=== PATIENT | male | born 1955 | race Caucasian/White ===

== ENCOUNTER 2021-01-03 13:54 | Observation (INO) | payer BC, MEDICARE, SELFPAY ==
--- NOTE | ~2021-01-03 | US_ITS ---
EXAMINATION: US venous doppler LE DATE: 01/03/2021 09:31 INDICATION: Phlebitis/thrombophlebitis with pain and swelling in the right lower limb. TECHNIQUE: Grayscale ultrasound images without and with compression and Doppler ultrasound images of the bilateral lower extremity veins were obtained. COMPARISON: None. FINDINGS: The visualized portions of right common femoral vein, profunda (deep) femoral vein, femoral vein, pop liteal vein, posterior tibial veins, peroneal veins, gastrocnemius vein and greater saphenous vein ou tflow are patent. The left peroneal veins dilated and noncompressible, filled with occlusive or nearly occlusive hypoec hoic thrombus. The visualized portions of left common femoral vein, profunda femoral vein, femoral ve in, popliteal vein, posterior tibial veins, peroneal veins, gastrocnemius vein and greater saphenous vein outflow are patent. IMPRESSION: 1. Deep venous thrombosis in the left peroneal vein. Dr. Handley discussed these findings with Dr. Berry at 9:40 AM. 2. No deep venous thrombosis in the right lower limb. Reviewed, dictated and finalized at location A. IMPRESSION: 1. Deep venous thrombosis in the left peroneal vein. Dr. Handley discussed debby findings with Dr. Berry at 9:40 AM. 2. No deep venous thrombosis in the right lower limb.
--- NOTE | ~2021-01-03 | CT_ITS ---
. EXAMINATION: CT abdomen w con DATE: 01/03/2021 09:51 INDICATION: Abdominal pain. TECHNIQUE: Computed tomography (CT) of the abdomen and pelvis was performed with 100 mL Omnipaque-350 intravenous contrast. Automated exposure control and iterative reconstruction technique were employe d. The dose-length product was 638.75 mGy-cm. COMPARISON: None FINDINGS: Mild dependent atelectasis in the bilateral lower lobes. Heart size is normal. Small amount of athero sclerotic coronary artery calcific lesion along the right coronary artery. Mitral annular calcific le shan. No pericardial or pleural effusion. Multiple low-attenuation hepatic cysts the largest measurin g 2.3 cm. Gallbladder, spleen and a couple small splenules, pancreas, bilateral adrenal glands and ki dneys are normal. Ventriculoperitoneal shunt extends along the anterior right chest wall into the per itoneum with distal tip in the right upper quadrant. Postoperative change of prior umbilical hernia m esh repair. There are a few small fat and fluid containing supraumbilical ventral hernias. No other e vident ascites in the abdomen or visualized portion of the upper pelvis. Multiple diverticula along t he descending and visualized proximal sigmoid colon without adjacent inflammatory change to suggest d iverticulitis. No bowel obstruction. Visualized portion of the appendix is normal. 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 The aorta at this level measures approximately 1.7 cm AP x 1.9 left to right with the saccular aneurysm extending 1.9 c m AP and adding an additional 11 mm to the AP diameter of the aorta. No pathologically enlarged abdom inal lymphadenopathy. Moderate to severe lumbar spondylosis with 2-3 mm spondylolisthesis at each lev el. Transitional thoracolumbar segment. IMPRESSION: 1. No acute intra-abdominal process. 2. Diverticulosis. 3. Multiple small fat and fluid containing supraumbilical ventral hernias with postoperative changes of more caudal umbilical hernia mesh repair. Reviewed, dictated and finalized at location A.
--- NOTE | ~2021-01-03 | CT_ITS ---
EXAMINATION: CT brain w con DATE: 01/03/2021 11:19 INDICATION: Brain tumor and suspected normal pressure hydrocephalus TECHNIQUE: Computed tomography (CT) of the head was performed with 100 mL Omnipaque-350 intravenous c ontrast. Sagittal and coronal reconstructions were performed. The mA was adjusted according to patien t size. Iterative reconstruction technique was employed. The dose-length product was 605.33 mGy-cm. COMPARISON: Sinus CT dated 11/26/2007 FINDINGS: There is a ventriculoperitoneal shunt which extends through a right parietal bre hole, across the ri ght parietal lobe, into the anterior horn of the right lateral ventricle before crossing the midline. The distal tip of the catheter is positioned along the septum the anterior horn of the le ft lateral ventricle from a normal cavum septum pellucidum. No acute intracranial hemorrhage, acute i nfarction or abnormal extra axial fluid collection. Ventricles remain normal and symmetric. There is a 10 x 6 x 5 mm enhancing lesion with poorly defined margins positioned along the medial margin of th e anterior right frontal lobe. No evident mass effect. The poorly defined margins favor intra-axial o michel an extra-axial lesion. No other abnormally enhancing lesions identified. The left vertebral arter y is dominant. There is segmental mild narrowing of the intracranial right vertebral artery. The left P1 segment is patent. The right posterior cerebral artery is supplied from the right internal caroti d artery by a patent right posterior communicating artery. The bilateral A1 segments are patent. Travis ges of right intraocular lens replacement. Orbits are otherwise unremarkable. Mild mucosal thickening in the bilateral ethmoid sinuses. Mastoid air cells and middle ear cavities are clear. IMPRESSION: 1. Likely intra-axial 10 x 6 x 5 mm enhancing lesion with poorly defined margins along the medial mar gin of the anterior right frontal lobe. Consider further evaluation with MRI. 2. Ventriculoperitoneal shunt catheter with distal tip along the septum the frontal horn o f the left lateral ventricle from a cavum septum pellucidum. No hydrocephalus. Reviewed, dictated and finalized at location A. IMPRESSION: 1. Likely intra-axial 10 x 6 x 5 mm enhancing lesion with poorly defined margin s along the medial margin of the anterior right frontal lobe. Consider further evaluation with MRI. 2. Ventriculoperitoneal shunt catheter with distal tip along the septum separat ing the frontal horn of the left lateral ventricle from a cavum septum pellucid um. No hydrocephalus.
[2021-01-03 09:39] LABS: Estimated Glomerular Filt Rate > 60
[2021-01-03 11:02] LABS: Estimated Glomerular Filt Rate > 60
[2021-01-03 12:30] LABS: Prothrombin Time 13.8 Seconds (11.1-14.7)
--- NOTE | 2021-01-03 12:36 | PC.NURSE ---
This patient, Gabriel Moura, was admitted to [facility] Surg Room 302-01 on 01/03/21 @ 1225. Patient/family oriented to hospital policies and general routines including ID bracelet, bed and alarms, visiting hours, pain management, procedures, bathroom and other care routines, personal items, smoking policy, room service/diet, and visiting hours. Information on how to activate the Rapid Response Team has been discussed. Patient/Family are encouraged to report perceived risks to care and to ask questions if they do not understand what they are told or what they should do.
--- NOTE | 2021-01-03 13:54 | PM.IMHP ---
H&P: HPI History of Present Illness Date/Time: 01/03/21 1230 this is a 65-year-old male patient with a history of having a brain tumor roughly around 0 3 or 0 4. The patient did have a SCROLL SHEAR OPERATOR shunt placed at that time and it is a delta pump that was placed at [facility] in [place]. The patient stated that the pump is been nonfunctioning for about the last 4 years. The patient stated that he is very fatigued. He states that he had oz have sleep apnea but he uses his CPAP machine. The patient states that he almost feels like he has narcolepsy that when he sits down in his falls asleep. The patient went to Dr. Souza to determine why he has been feeling so fatigued recently. The patient stated he did have his thyroid checked and it was okay. The patient stated that many years ago he did have 30 radiation treatments for his brain tumor. The patient has been having periods of falling as well. The patient stated that he does not feel dizzy or have any chest pain during this time but he is off balance at times and falls. Patient fell recently about a weaker to ago but he did not hit his head. The patient has a history of paroxysmal atrial fibrillation as well and he is not on any anticoagulation. He is just on rate controlling medication. The patient was complaining of right knee pain and therefore he was sent for venous Dopplers to bilateral lower extremities. Deep venous thrombosis in the left peroneal vein. Dr. Handley discussed these findings with Dr. Berry at 9:40 AM. 2. No deep venous thrombosis in the right lower limb. I double checked with the radiologist concerning that which leg had a DVT and it was verified that the left leg has a DVT. Surgery has been consulted the patient has been NPO all day. I also spoke with Dr. ang copious she explained that he feels that the best treatment for this patient at this time is for him to have a IVC filter. The procedure was explained to the patient by the surgical team as well as the surgeon. The patient is also concerned about his sleep apnea and is scheduled for a repeat sleep study. However explained that we could do the apneic link today but if he fails and he would just have to go to another sleep study anyway. However the and the patient would like for the jolei tingling to be performed tonight. Also had MRI of the brain today which was read as1. Likely intra-axial 10 x 6 x 5 mm enhancing lesion with poorly defined margins along the medial margin of the anterior right frontal lobe. Consider further evaluation with MRI. 2. 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 No hydrocephalus. I discussed these findings with the patient and his . I am also requesting information concerning the SCROLL SHEAR OPERATOR shunt that was placed at [facility]. I spoke with MRI twice now to determine if the patient can't have an MRI with a SCROLL SHEAR OPERATOR shunt. The tells me that it is a delta and it was placed at [facility]. I am requesting records concerning the SCROLL SHEAR OPERATOR shunt. The BP shunt has been nonfunctioning for about [address] the patient on a monitor as he has paroxysmal atrial fibrillation. He has not been on any anticoagulation. And we explained that at some point if everything comes LR right with MRI that the patient may possibly be placed on anticoagulation. The patient stated that he would also like to talk to his own vp lab who is at another facility prior to taking any anticoagulation. The surgeon explained held the filter works and that sometimes it may become plugged along with any other complications that could occur from having a IVC filter. I spoke with my collaborative who stated that the patient may possibly be anticoagulated later on down the road. However it was felt that it to the but patient's best interest to have IVC filter at this time and determine what the mass is o
--- NOTE | 2021-01-03 13:58 | PM.CNGS ---
Assessment and Plan Assessment and plan (1) DVT (deep venous thrombosis): Code(s): I82.409 - Acute embolism and thrombosis of unspecified deep veins of unspecified lower extremity Status: Acute Assessment and Plan: DVT left peroneal vein on venous doppler studies. PCP requesting IVC filter placement due to him wanting to avoid anticoagulation for possible future intervention for head CT findings and history of falls. I discussed this with the patient and treatment plan. Description of the procedure, risks, benefits, and expected recovery were discussed with the patient. We will proceed with IVC filter placement today by Dr. Bray. (2) Hx of fall: Code(s): Z91.81 - History of falling Status: Acute (3) Abnormal CT scan, head: Code(s): R93.0 - Abnormal findings on diagnostic imaging of skull and head, not elsewhere classified Status: Acute (4) Pineal gland, tumor: Code(s): D49.7 - Neoplasm of unspecified behavior of endocrine glands and other parts of nervous system Status: Acute (5) MADISYN on CPAP: Code(s): G47.33 - Obstructive sleep apnea (adult) (pediatric); Z99.89 - Dependence on other enabling machines and devices Status: Acute (6) Paroxysmal atrial fibrillation: Code(s): I48.0 - Paroxysmal atrial fibrillation Status: Acute Assessment and Plan: Not on chronic anticoagulation Additional Plan I have discussed the patient's case and plan of care with Dr. Bray. History of Present Illness Consult details Consult date: 01/03/21 Reason for consult: other (IVC filter placement) Requesting physician: Cassi Felix NP Narrative: This is a 65-year-old with a history of pineal gland tumor status post PROCESS MANUFACTURING ENGINEER shunt placement in 2002, paroxysmal atrial fibrillation, MADISYN, and history of falls, who was seen by his primary care physician yesterday with complaints of fatigue, right lower extremity swelling, and right posterior knee pain. He had outpatient bilateral venous Doppler studies showing a left peroneal vein DVT. He also had a head CT with a 10 x 6 x 5 mm enhancing lesion and PROCESS MANUFACTURING ENGINEER shunt catheter noted. Our service was contacted by Dr. Berry for request of IVC filter placement. He would like to avoid anticoagulating the patient for the DVT reportedly due to history of falls and possible future procedures for new findings on head CT. The patient has been admitted to the hospitalist service for further workup and coordinating IVC filter placement. He is now seen on the medical floor. The hospitalist is working with Radiology to confirm laterality of the DVT. Patient's main complaint is swelling to the right lower extremity with posterior knee pain and fatigue. No other complaints at this time. Review of Systems Review of Systems: All systems reviewed & are unremarkable except as noted in HPI and below PMFSH Past Medical History Medical History BMI 29.0-29.9,adult Cognitive dysfunction Colon cancer screening Encounter to establish care Fatigue History of brain tumor Hx of fall Inguinal hernia On termite exterminator helper drug therapy MADISYN on CPAP Pineal gland, tumor Prostate cancer screening SBO (small bowel obstruction) Superficial thrombophlebitis Ventral hernia Surgical History Surgical History H/O eye surgery H/O hernia repair umbilical hernia and inguinal hernia repair in past S/P PROCESS MANUFACTURING ENGINEER shunt Family History Family History Father Heart disease Acute myocardial infarction Mother COVID-19 Sibling COVID-19 Other Family history of cardiovascular disease Social History Social History Smoking status: Never smoker Second hand tobacco smoke exposure: Yes Alcohol intake: current Substance use: never Substance use ty
--- NOTE | 2021-01-03 14:27 | WPDHPUPDATE1 ---
History and Physical Update Update Date/Time: 01/03/21 14:27 History and Physical has been reviewed, including an updated exam of the patient. There are NO changes in the patient's condition. Risks, benefits, and alternatives have been discussed and questions answered. Patient agrees to proceed with procedure.
--- NOTE | 2021-01-03 14:53 | P.OP_ITS ---
Procedure Note - Detailed Date of Procedure 01/03/21 Pre-op Diagnosis LLE DVT Post-op Diagnosis same Procedure Performed IVC filter placement using ultrasound and fluoroscopic guidance Surgeon Claude Bray, DO Anesthesia local (1% Lidocaine) Indications this is a 65-year-old man who presented with a recent finding of a left lower extremity DVT. He also has a history of SCREW MACHINE SET UP OPERATOR TOOL shunt and brain tumor. He has had some problems with unsteady gait and has had a couple falls. I discussed his condition with his primary care physician who felt that he would not be a long- term anticoagulation candidate. His PCP was requesting proceeding with IVC filter placement. Findings Sonosite ultrasound was used to identify the right femoral vein. This was visualized as a compressible vessel just medial to the pulsatile femoral artery. The 18 gauge introducer needle was advanced under ultrasound guidance. Fluoroscopy was then used to guide advancement of the guidewire followed by the dilator and sheath. Final fluoroscopic images demonstrated the filter in proper position at the level of the L3 vertebral body. Description of Procedure Patient was brought back to tree tapping laborer suite. He was placed supine tree tapping laborer table. Time-out was done to confirm patient procedure. his right groin was prepped and draped in sterile fashion using chlorhexidine prep. SonoSite ultrasound was used to identify the right femoral vein. This was visualized as a compressible vessel just medial to the right femoral artery. 1% lidocaine was infiltrated directly over this area. An 18 gauge introducer needle was then advanced under ultrasound guidance directly into the lumen of the right femoral vein. Dark nonpulsatile blood was aspirated. A 0.035 in guidewire was advanced through the needle under fluoroscopic guidance. The guidewire advanced smoothly and was visualized advancing up into the inferior vena cava. The needle was withdrawn leaving the guidewire in place. A small duglas incision was made at the insertion site using an 11 blade scalpel. The 6 [place] dilator and sheath were then advanced over the guidewire under fluoroscopic guidance. The sheath was advanced up to the L3 vertebral body, and then once the sheath was at the upper portion of the L3 vertebral body, the dilator and guidewire were removed. The IVC filter was then inserted into the end of the sheath and then the plunger was used to carefully advanced the filter up the length of the sheath. Once the filter was visualized under fluoroscopy at the tip of the sheath, the sheath was slowly withdrawn to allow the filter to deploy. Once the filter was completely expanded, the sheath was removed and pressure was applied at the insertion site. One final fluoroscopic image was obtained visualizing the IVC filter and proper orientation overlying the L3 vertebral body. After holding pressure for 5 minutes, there is no further blood loss and a sterile dressing was applied. Implants Trapease IVC Filter Estimated Blood Loss 2 Complications No immediate complications Condition stable Disposition floor
[2021-01-03 15:56] LABS: Alanine Aminotransferase 18 U/L (4-50); Albumin Level 4.2 g/dL (3.5-5.1); Alkaline Phosphatase 104 U/L (38-126); Anion Gap 7 mmol/L (8-16); Aspartate Amino Transferase 24 U/L (17-59); Bilirubin,Total 0.6 mg/dL (0.2-1.3); Blood Urea Nitrogen 11 mg/dL (9-20); Calcium 9.8 mg/dL (8.4-10.2); Carbon Dioxide 31 mmol/L (22-30); Chloride 105 mmol/L (98-107); Estimated Glomerular Filt Rate > 60; Glucose 97 mg/dL (75-110); Magnesium 2.2 mg/dL (1.6-2.3); Potassium 4.8 mmol/L (3.4-5.0); Sodium 143 mmol/L (137-145)
[2021-01-03 16:00] VITALS: BP 138/83; PULSE 55; RESP 20; TEMP 36.5; O2SAT 96
[2021-01-03] MEDS: SODIUM CHLORIDE 0.9% IV 1,000 ML 100 ML IV CONT ×2 (16:09→23:22)
[2021-01-03 16:53] LABS: Free T4 Free Thyroxine 0.97 ng/mL (0.78-2.19)
[2021-01-03] MEDS: ACETAMINOPHEN 325 MG TABLET 650 MG PO (16:54)
[2021-01-03 19:48] VITALS: BP 114/70; PULSE 58; RESP 18; TEMP 36.6; O2SAT 95
[2021-01-03 20:00] VITALS: PULSE 54
[2021-01-03 22:40] VITALS: PULSE 68
[2021-01-03] MEDS: FLECAINIDE ACETATE 100 MG TABLET PO (22:40)
[2021-01-03 23:29] VITALS: BP 116/62; PULSE 57; RESP 18; TEMP 36.3; O2SAT 95
[2021-01-04] VITALS (9 sets, daily range): BP systolic 115–140; BP diastolic 64–83; PULSE 54–76; RESP 14–18; TEMP 36.2–36.6; O2SAT 93–100; BMI 26.6
[2021-01-04 06:08] LABS: Basophils Absolute Auto 0.1 K/mm3 (0.0-0.1); Basophils Percent Auto 0.8 % (0.2-1.2); Eosinophils Absolute Auto 0.3 K/mm3 (0-0.3); Eosinophils Percent Auto 4.7 % (0-4.4); Hematocrit 38.4 % (42.0-52.0); Immature Granulocyte Absolute 0.01 K/mm3 (0.00-0.031); Immature Granulocyte Percent A 0.1 % (0-0.5); Lymphocytes Absolute Auto 1.83 K/mm3 (0.9-3.2); Lymphocytes Percent Auto 25.9 % (18.3-44.2); Mean Corpuscular HGB Conc 33.9 g/dl (32-36); Mean Corpuscular Hemoglobin 30.8 pg (26-34); Mean Platelet Volume 9.9 fl (7.4-10.4); Monocytes Absolute Auto 0.5 K/mm3 (0.1-0.6); Monocytes Percent Auto 6.9 % (2.6-8.5); Neutrophils Absolute Auto 4.4 K/mm3 (1.3-6.7); Neutrophils Percent Auto 61.6 % (45.5-73.1); Platelet Count Result 206 k/mm3 (150-375); Red Blood Count 4.22 M/mm3 (4.6-6.20); Red Cell Distribution Width 13.4 % (11.5-14.5); White Blood Count 7.1 K/mm3 (4.5-10.0)
[2021-01-04] MEDS: ACETAMINOPHEN 325 MG TABLET 650 MG PO (06:23)
[2021-01-04 06:26] LABS: Alanine Aminotransferase 15 U/L (4-50); Albumin Level 3.6 g/dL (3.5-5.1); Alkaline Phosphatase 95 U/L (38-126); Anion Gap 5 mmol/L (8-16); Aspartate Amino Transferase 22 U/L (17-59); Bilirubin,Total 0.6 mg/dL (0.2-1.3); Blood Urea Nitrogen 9 mg/dL (9-20); Calcium 9.2 mg/dL (8.4-10.2); Carbon Dioxide 28 mmol/L (22-30); Chloride 107 mmol/L (98-107); Estimated Glomerular Filt Rate > 60; Glucose 99 mg/dL (75-110); Lactate Dehydrogenase 289 U/L (313-618); Lipase 66 U/L (23-300); Magnesium 2.1 mg/dL (1.6-2.3); Potassium 4.1 mmol/L (3.4-5.0); Sodium 140 mmol/L (137-145)
[2021-01-04 08:04] LABS: Thyroid Stimulating Hormone Reflex 0.651 uIU/mL (0.465-4.68)
[2021-01-04] MEDS: FLECAINIDE ACETATE 100 MG TABLET PO ×2 (09:20→21:16)
[2021-01-04] MEDS: ASPIRIN 81 MG ENTERIC TABLET PO (09:20)
--- NOTE | 2021-01-04 10:19 | WPDANESPN ---
Anes - Prog Note Post-Op Date/Time: 01/04/21 10:19 Cardiovascular status: normal Respiratory status: normal Airway patency: baseline Mental status: baseline Post-Op hydration status: normal Vital Signs: Last Vital Signs Temp 36.6 C 01/04/21 06:00 Pulse 72 01/04/21 09:20 Resp 18 01/04/21 06:00 BP 128/78 01/04/21 06:00 Pulse Ox 93 01/04/21 06:00 Pain Score (VAS): 0/10. Patient resting in bed at time of assessment, appears comfortable. I/O: Intake & Output 01/03/21 01/04/21 01/04/21 23:59 07:59 15:59 Intake Total 1390 1000 Balance 1390 1000 Laboratory Tests 01/04/21 05:44 01/04/21 05:44 01/03/21 01/03/21 01/03/21 11:00 12:17 15:24 WBC RBC Hgb Hct MCV MCH MCHC RDW Plt Count MPV Immature Gran % (Auto) Neut % (Auto) Lymph % (Auto) [place] % (Auto) Eos % (Auto) Baso % (Auto) Lymph # (Auto) [place] # (Auto) Eos # (Auto) Baso # (Auto) Abs Immat Gran (auto) Absolute Neuts (auto) Absolute Nucleated RBC Nucleated RBC % PT 13.8 INR 1.0 Sodium 143 Potassium 4.8 Chloride 105 Carbon Dioxide 31 H Anion Gap 7 L BUN 11 Creatinine 0.70 0.70 Estim Creat Clear Calc Not Reportable Not Reportable Estimated GFR > 60 > 60 Glucose 97 Calcium 9.8 Magnesium 2.2 Total Bilirubin 0.6 AST 24 ALT 18 Alkaline Phosphatase 104 Lactate Dehydrogenase Total Protein 8.0 Albumin 4.2 Lipase TSH (Reflex) Free T4 01/03/21 01/04/21 01/04/21 15:24 05:44 05:44 WBC 7.1 RBC 4.22 L Hgb 13.0 L Hct 38.4 L MCV 91.0 MCH 30.8 MCHC 33.9 RDW 13.4 Plt Count 206 MPV 9.9 Immature Gran % (Auto) 0.1 Neut % (Auto) 61.6 Lymph % (Auto) 25.9 [place] % (Auto) 6.9 Eos % (Auto) 4.7 H Baso % (Auto) 0.8 Lymph # (Auto) 1.83 [place] # (Auto) 0.5 Eos # (Auto) 0.3 Baso # (Auto) 0.1 Abs Immat Gran (auto) 0.01 Absolute Neuts (auto) 4.4 Absolute Nucleated RBC 0.0 Nucleated RBC % 0.0 PT INR Sodium 140 Potassium 4.1 Chloride 107 Carbon Dioxide 28 Anion Gap 5 L BUN 9 Creatinine 0.70 Estim Creat Clear Calc Not Reportable Estimated GFR > 60 Glucose 99 Calcium 9.2 Magnesium 2.1 Total Bilirubin 0.6 AST 22 ALT 15 Alkaline Phosphatase 95 Lactate Dehydrogenase 289 L Total Protein 7.0 Albumin 3.6 Lipase 66 TSH (Reflex) Free T4 0.97 01/04/21 05:44 WBC RBC Hgb Hct MCV MCH MCHC RDW Plt Count MPV Immature Gran % (Auto) Neut % (Auto) Lymph % (Auto) [place] % (Auto) Eos % (Auto) Baso % (Auto) Lymph # (Auto) [place] # (Auto) Eos # (Auto) Baso # (Auto) Abs Immat Gran (auto) Absolute Neuts (auto) Absolute Nucleated RBC Nucleated RBC % PT INR Sodium Potassium Chloride Carbon Dioxide Anion Gap BUN Creatinine Estim Creat Clear Calc Estimated GFR Glucose Calcium Magnesium Total Bilirubin AST ALT Alkaline Phosphatase Lactate Dehydrogenase Total Protein Albumin Lipase TSH (Reflex) 0.651 Free T4 Post-procedural complaints: none Patient Feedback: Patient satisfied with anesthetic care.
--- NOTE | 2021-01-04 15:17 | PM.IMPN ---
Progress Note: A&P Assessment and Plan (1) Abnormal CT of brain: Code(s): R90.89 - Other abnormal findings on diagnostic imaging of central nervous system Status: Acute Assessment and Plan: Patient with a history of brain tumor status post radiation and CLAMPER shunt placement. CT brain was obtained in the emergency room which found Likely intra-axial 10 x 6 x 5 mm enhancing lesion with poorly defined margins along the medial margin of the anterior right frontal lobe. Consider further evaluation with MRI. We are having issues with getting an MRI here since the patient has a CLAMPER shunt we need the make and model of his shunt, improve of shunt placement with surgical records. I discussed this with Dr. Berry who felt comfortable with discharging the patient home to obtain an MRI at [facility] or [facility] where they have his prior records and MRIs to compare with. I discussed the plan with the patient's for possible discharge and primary care can obtain an outpatient MRI. The patient's would like us to continue trying to obtain records from [facility] to get MRI here at our facility during this hospitalization. Will try and obtain records from [facility] Continue monitoring. (2) DVT (deep venous thrombosis): Code(s): I82.409 - Acute embolism and thrombosis of unspecified deep veins of unspecified lower extremity Status: Acute Assessment and Plan: Acute DVT to his left peroneal vein. The patient was thought to be high risk for starting anticoagulation for DVT treatment, falls, prior brain cancer and a new suspicious lesion to his brain. His primary care provider recommended an IVC filter be placed. Surgery was consulted Dr. Bray who placed an IVC filter on 01/03/2021. (3) S/P CLAMPER shunt: Code(s): Z98.2 - Presence of cerebrospinal fluid drainage device Status: Acute Assessment and Plan: A CLAMPER shunt had been placed in 2002 or 2003 after having a brain tumor. (4) MADISYN on CPAP: Code(s): G47.33 - Obstructive sleep apnea (adult) (pediatric); Z99.89 - Dependence on other enabling machines and devices Status: Acute Assessment and Plan: Patient does use a CPAP at night, but has not had a sleep study in a long time. Patient had an apnea link last night on room air which showed suspected pathology breathing disorder. His AHI was 13.1, RI 16.5, JINA was 11.2. Will continue home CPAP tonight Recommend further evaluation with a repeat sleep study as an outpatient. Explained to the patient and he understands and agrees the plan all questions answered. (5) Paroxysmal atrial fibrillation: Code(s): I48.0 - Paroxysmal atrial fibrillation Status: Acute Assessment and Plan: Place the patient on a telemetry showing normal sinus rhythm. He will be continued on his flecainide and diltiazem. No anticoagulation this time Continue monitoring. Time Spent With Patient Time with patient: 25 - 35 minutes Subjective Date/time seen: 01/04/21 15:17 Interval history: Date of Service 01/04/21: The patient reports feeling well at this time. He still having some fatigue but this is chronic in nature. He does report some right leg swelling, in some right knee pain to the medial aspect. No calf pain bilaterally. He denies any chest pain, shortness of breath, cough, fever, chills, nausea, vomiting, abdominal pain, or any other symptoms at this time. Review of Systems Review of Systems: All systems reviewed & are unremarkable except as noted in HPI and below Exam Narrative: Exam Narrative: General: 65-year-old man sitting up in bed watching TV. Appears comfortable. In no acute distress. Skin: No jaundice or cyanosis. Go
[2021-01-05 05:43] VITALS: BP 137/78; PULSE 63; RESP 18; TEMP 36.7; O2SAT 95
[2021-01-05] MEDS: FLECAINIDE ACETATE 100 MG TABLET PO (08:47)
[2021-01-05] MEDS: ASPIRIN 81 MG ENTERIC TABLET PO (08:48)
--- NOTE | 2021-01-05 12:40 | PM.DS ---
DS: Admitting Diagnosis Admitting Diagnosis Admitting Diagnosis: Fatigue, DVT DS: Discharge Diagnosis Discharge Diagnosis (1) Abnormal CT of brain: Code(s): R90.89 - Other abnormal findings on diagnostic imaging of central nervous system Status: Acute Assessment and Plan: Patient is a 65-year-old man with a history of pineal brain tumor status post radiation and PLANT [employer] shunt placement in [id number], has since been in remission, who presented to his primary care provider's office on 01/02/2021 for a routine examination. At this time the patient complained of chronic fatigue that was gradually worsening. Patient's primary care provider ordered basic labs and imaging for his symptoms. Patient's outpatient labs were within normal range, but his Venous Dopplers showed he had a Deep venous thrombosis in the left peroneal vein. CT Abd showed No acute intra-abdominal process. CT Head showed Likely intra-axial 10 x 6 x 5 mm enhancing lesion with poorly defined margins along the medial margin of the anterior right frontal lobe. Consider further evaluation with MRI. 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 No hydrocephalus. The patient was directly admitted into our hospital with a surgical consult for IVC filter placement since the patient was thought to be high risk for anticoagulation. Surgery team saw the patient in place an IVC filter on 01/03/2021. The patient was also admitted for an MRI for further evaluation of his enhancing lesion. We were unable to obtain the MRI due to the patients history of [employer] shunt and us being unable to obtain the correct records on his shunt from [facility] and [facility]. The patient was otherwise feeling well, without any neurologic issues. He was discharged to follow up with PCP for MRI as an outpatient. The patient understands and agrees with the plan. All questions answered. (2) DVT (deep venous thrombosis): Code(s): I82.409 - Acute embolism and thrombosis of unspecified deep veins of unspecified lower extremity Status: Acute Assessment and Plan: Acute DVT to his left peroneal vein. The patient was thought to be high risk for starting anticoagulation for DVT treatment, falls, prior brain cancer and a new suspicious lesion to his brain. His primary care provider recommended an IVC filter be placed. Surgery was consulted Dr. Bray who placed an IVC filter on 01/03/2021. (3) S/P [employer] shunt: Code(s): Z98.2 - Presence of cerebrospinal fluid drainage device Status: Acute Assessment and Plan: A PLANT [employer] shunt had been placed in 2002 or 2003 after having a brain tumor. (4) MADISYN on CPAP: Code(s): G47.33 - Obstructive sleep apnea (adult) (pediatric); Z99.89 - Dependence on other enabling machines and devices Status: Acute Assessment and Plan: Patient does use a CPAP at night, but has not had a sleep study in a long time. Patient had an apnea link last night on room air which showed suspected pathology breathing disorder. His AHI was 13.1, RI 16.5, JINA was 11.2. Will continue home CPAP tonight Recommend further evaluation with a repeat sleep study as an outpatient. Explained to the patient and he understands and agrees the plan all questions answered. (5) Paroxysmal atrial fibrillation: Code(s): I48.0 - Paroxysmal atrial fibrillation Status: Acute Assessment and Plan: Place the patient on a telemetry showing normal sinus rhythm. He will be continued on his flecainide and diltiazem. No anticoagulation this time Tele discontniued DS: Summary Hospital Course Hospital Course: See above Status at Di
--- NOTE | 2021-01-05 14:00 | PC.NURSE ---
Pt is being discharged. Pt has had IV removed and discharge paperwork reviewed. Pt was provided with a disc of current testing for follow up appointments. Pt ambulated independently to the elevators to meet his ride.
== END 2021-01-05 14:00 | disposition home or self-care (01) ==
PROVIDERS: Internal Medicine; Nurse Practitioner; Surgery; Admitting Provider Family Medicine; PCP Family Medicine; Visit Provider Emergency Medicine
DX: I82.452 Acute embolism and thrombosis of left peroneal vein (principal); D49.7 Neoplasm of unspecified behavior of endocrine glands and other parts of nervous system; G47.33 Obstructive sleep apnea (adult) (pediatric); I48.91 Unspecified atrial fibrillation; M79.89 Other specified soft tissue disorders; R29.6 Repeated falls; Z99.89 Dependence on other enabling machines and devices; Z98.2 Presence of cerebrospinal fluid drainage device
CPT/HCPCS: 36415; 37191; 70460; 74160; 80053; 83615; 83690; 83735; 84439; 84443; 85025; 85610; 93970; 96360; 96361; A9270; C1880; G0378; G0379; J1644; J7030; J7040; Q9967